=== PATIENT | female | born 1945 | race Caucasian/White ===

== ENCOUNTER 2018-03-01 20:40 | Inpatient (IN) | payer OTHER ==
[~2018-03-01] VITALS: Ht 152.4 cm; Wt 74.4 kg
[2018-03-01] MEDS ORDERED: JANUVIA100 MG (21:01)
[2018-03-01] MEDS ORDERED: GLIMEPIRIDE1 MG (21:02)
[2018-03-01] MEDS ORDERED: HYZAAR 100-12.1 EACH (21:03)
[2018-03-01] MEDS ORDERED: ZOCOR20 MG (21:03)
== END 2018-03-07 11:04 | disposition home or self-care (01) | DRG 392 ==
LOC: ER 20:40 → SURG 03-02 09:15
PROC: 3E0436Z Introduction of Nutritional Substance into Central Vein, Percutaneous Approach (ICD-10-PCS; principal; 2018-03-04)
PROC: 02HV33Z Insertion of Infusion Device into Superior Vena Cava, Percutaneous Approach (ICD-10-PCS; 2018-03-04)
DX: K57.32 Diverticulitis of large intestine without perforation or abscess without bleeding (principal); E11.9 Type 2 diabetes mellitus without complications; I10 Essential (primary) hypertension

== ENCOUNTER 2018-07-03 22:20 | Inpatient (IN) | payer OTHER ==
[~2018-07-03] VITALS: Ht 165.1 cm; Wt 72.6 kg
[~2018-07-03 22:20] MED LIST: GLIMEPIRIDE1 MG; HYZAAR 100-12.1 EACH; JANUVIA100 MG; ZOCOR20 MG
--- NOTE | 2018-07-03 22:30 | NUR ---
PTE SE RECIBE POR ABDOMINAL PAIN Y DIARREA REFIERE PARAMEDICO Y PTE.
--- NOTE | 2018-07-03 22:53 | NUR ---
PT ALERTA Y ORIETNADA X3 ESFERAS SE LE ORIENTA SOBRE TX Y REFIERE ENTEDER. SE KOLBY MUESTRAS DE YIN Y VENOPUNCION CON TECNICAS ASEPTICAS. SE ADMINSITRAN MEDICAMENTOS E IVLFUIDS ORDENADOS. PT [place].
== END 2018-07-07 10:32 | disposition home or self-care (01) | DRG 392 ==
LOC: ER 22:20 → MEDI 07-04 07:19
PROVIDERS: ADMIT Internal Medicine Cardiovascular Disease
DX: K57.30 Diverticulosis of large intestine without perforation or abscess without bleeding (principal); K44.9 Diaphragmatic hernia without obstruction or gangrene; I10 Essential (primary) hypertension; E11.9 Type 2 diabetes mellitus without complications; Z79.4 Long term (current) use of insulin; N28.89 Other specified disorders of kidney and ureter

== ENCOUNTER 2018-07-16 15:38 | Outpatient (CLI) | payer OTHER | END 2018-07-16 15:42 | disposition home or self-care (01) | LOC: RAD 15:38 | DX: J44.9 Chronic obstructive pulmonary disease, unspecified (principal) ==

== ENCOUNTER 2018-09-07 09:21 | Inpatient (IN) | payer OTHER ==
[~2018-09-07] VITALS: Ht 167.6 cm; Wt 71.7 kg
--- NOTE | 2018-09-07 09:41 | NUR ---
PTE REFIERE DOLOR ABDOMINAL DESDE ANOCHE . PTE REFIERE DIVERTICULITIS ,YA QUE PADESE DE DIVERTICULOS.Y REAFIRMA LOS MISMOS SINTOMAS.
--- NOTE | 2018-09-07 11:32 | NUR ---
SE ORIENTA PTE SOBRE EL TRATAMIENTO ORDENADO POR EL DR COTTER PTE ALERTA Y CONCIENTE POR 3 SE REALIZAN MUESTRAS DE LABORTORIO Y SE ADMINISTRAN MEDICAMENTO MAGDI ORDENADO. PTE EN ESPERA DE CT
== END 2018-09-14 14:48 | disposition home or self-care (01) | DRG 392 ==
LOC: ER 09:21 → MEDJ 13:07
PROVIDERS: ADMIT Internal Medicine Cardiovascular Disease
PROC: BW21ZZZ Computerized Tomography (CT Scan) of Abdomen and Pelvis (ICD-10-PCS; principal; 2018-09-07)
PROC: 02HV33Z Insertion of Infusion Device into Superior Vena Cava, Percutaneous Approach (ICD-10-PCS; 2018-09-07)
DX: K57.32 Diverticulitis of large intestine without perforation or abscess without bleeding (principal); I10 Essential (primary) hypertension; E11.9 Type 2 diabetes mellitus without complications; K44.9 Diaphragmatic hernia without obstruction or gangrene

== ENCOUNTER 2018-10-31 14:58 | Inpatient (IN) | payer OTHER ==
[~2018-10-31] VITALS: Ht 152.4 cm; Wt 72.1 kg
[2018-12-10] MEDS ORDERED: GLUCOPHAGE XR500 MG PO (08:59)
[2018-12-10] MEDS ORDERED: ZOCOR40 MG PO (08:59)
[2018-12-10] MEDS ORDERED: EVISTA60 MG PO ×2 (09:00→09:03)
[2018-12-10] MEDS ORDERED: OMEPRAZOLE20 MG PO ×2 (09:00→09:03)
[2018-12-10] MEDS ORDERED: ARTHRITIS HOT P PO (09:01)
[2018-12-10] MEDS ORDERED: HAZAR PO (09:02)
[2018-12-10] MEDS ORDERED: GLIM PO (09:02)
[2018-12-10] MEDS ORDERED: ZOCOR20 MG PO (09:03)
[2018-12-18] MEDS ORDERED: GLIMEPIRIDE4 MG PO (08:08)
[2018-12-18] MEDS ORDERED: HYZAAR 50-12.51 EACH PO (08:11)
[2018-12-21] MEDS ORDERED: ULTRACET PO (14:55)
[2018-12-21] MEDS ORDERED: INTESTINEX680 M1 PO (14:55)
[2018-12-21] MEDS ORDERED: MUPIROCIN15 GM TOP (14:56)
== END 2018-12-21 15:25 | disposition home or self-care (01) | DRG 331 ==
LOC: SURG 12-02 10:15 → O/R 12-18 06:15 → SURG 12-18 09:45
PROVIDERS: ADMIT Surgery
PROC: 0DJD8ZZ Inspection of Lower Intestinal Tract, Via Natural or Artificial Opening Endoscopic (ICD-10-PCS; 2018-12-18)
PROC: 0DTN4ZZ Resection of Sigmoid Colon, Percutaneous Endoscopic Approach (ICD-10-PCS; principal; 2018-12-18 09:45)
DX: K57.32 Diverticulitis of large intestine without perforation or abscess without bleeding (principal); E11.9 Type 2 diabetes mellitus without complications; I10 Essential (primary) hypertension; K44.9 Diaphragmatic hernia without obstruction or gangrene; N28.89 Other specified disorders of kidney and ureter

== ENCOUNTER 2018-12-10 12:29 | Outpatient (CLI) | payer OTHER ==
[~2018-12-10 12:29] MED LIST changes: +ARTHRITIS HOT P PO; +EVISTA60 MG PO; +GLIM PO; +GLUCOPHAGE XR500 MG PO; +HAZAR PO; +OMEPRAZOLE20 MG PO; +ZOCOR20 MG PO; +ZOCOR40 MG PO
== END 2018-12-10 12:33 | disposition home or self-care (01) ==
LOC: LAB 12:29
DX: N39.0 Urinary tract infection, site not specified (principal); B96.29 Other Escherichia coli [E. coli] as the cause of diseases classified elsewhere

== ENCOUNTER 2018-12-13 09:38 | Outpatient (CLI) | payer OTHER ==
[2018-12-21] MEDS ORDERED: ULTRACET PO ×2 (14:55)
[2018-12-21] MEDS ORDERED: INTESTINEX680 M1 PO ×2 (14:55)
[2018-12-21] MEDS ORDERED: MUPIROCIN15 GM TOP ×2 (14:56)
== END 2018-12-13 09:45 | disposition home or self-care (01) ==
LOC: RAD 09:38 → MAMO-SONO 10:15
DX: M19.90 Unspecified osteoarthritis, unspecified site (principal)

== ENCOUNTER 2020-09-30 06:13 | Day surgery (SDC) | payer OTHER ==
[~2020-09-30 06:13] MED LIST changes: +GLIMEPIRIDE4 MG PO; +HYZAAR 50-12.51 EACH PO; +INTESTINEX680 M1 PO; +MUPIROCIN15 GM TOP; +ULTRACET PO
== END 2020-09-30 10:10 | disposition home or self-care (01) ==
LOC: AMB-ENDOS 06:13
PROVIDERS: ATTEND Surgery
DX: K62.89 Other specified diseases of anus and rectum (principal); K64.4 Residual hemorrhoidal skin tags; Z20.822 Contact with and (suspected) exposure to COVID-19